=== PATIENT | male | born 1970 | race Caucasian/White ===

== ENCOUNTER 2018-11-11 03:52 | Inpatient (IN) | payer BC ==
[2018-11-11] VITALS (19 sets, daily range): BP systolic 107–164; BP diastolic 64–97
[~2018-11-11] VITALS: Ht 167.6 cm; Wt 88.3 kg
[2018-11-11] MEDS ORDERED: MORPHINE SULFATE 4 MG/ML CPJ (NOT FOR IM USE) IV ONE ×3 (07:15→14:00)
[2018-11-11 08:17] LABS: BASOPHILS % 0.4 % (0.0-2.0); EOSINOPHILS % 2.8 % (0.0-5.0); HEMATOCRIT. 42.5 % (42.0-52.0); HEMOGLOBIN. 14.9 g/dL (14.0-18.0); LYMPHOCYTES % 12.7 % (20.0-50.0); MEAN CORPUSCULAR HEMOGLOBIN 30.3 pg (28.0-32.0); MEAN CORPUSCULAR VOLUME 86.4 fL (80.0-94.0); MEAN PLATELET VOLUME 7.2 fl (7.4-10.4); MONOCYTES % 8.8 % (2.0-8.0); NEUTROPHILS % 75.3 % (40.0-76.0); PLATELET 296 x1000/uL (130-400); RED BLOOD CELL COUNT 4.92 mill/uL (4.7-6.1); RED CELL DISTRIBUTION WIDTH 13.2 % (11.6-14.6)
[2018-11-11 08:22] LABS: CHLORIDE 101 mEq/L (98-107)
[2018-11-11 08:25] LABS: PROTHROMBIN TIME 10.3 sec (9.6-11.0)
[2018-11-11] MEDS ORDERED: DEXAMETHASONE 10 MG/ML VIAL IV ONE (11:45)
[2018-11-11] MEDS: DOCUSATE SODIUM 250MG CAPSULE PO SCH (14:00)
[2018-11-11] MEDS ORDERED: ONDANSETRON HCL 4MG/2ML INJ IV PRN (14:00)
[2018-11-11] MEDS ORDERED: BISACODYL 5MG TABLET PO PRN (14:00)
[2018-11-11 15:10] LABS: C REACTIVE PROTEIN QUANT 8.4 mg/L (0.0-3.0)
[2018-11-11 15:21] LABS: CARCINO EMBRYONIC ANTIGEN 1.1 ng/ml
[2018-11-11 15:32] LABS: HEPATITIS B SURFACE ANTIGEN NEGATIVE
[2018-11-11] MEDS ORDERED: GADOBENATE DIMEGLUMINE 529 MG/ML 10ML IV ONE (15:39)
[2018-11-11 15:41] LABS: CLARITY URINE CLEAR (CLEAR); COLOR URINE YELLOW (YELLOW); KETONES URINE NEGATIVE (NEGATIVE); LEUKOCYTE ESTERASE URINE NEGATIVE (NEGATIVE); NITRITE URINE NEGATIVE (NEGATIVE); OCCULT BLOOD URINE NEGATIVE (NEGATIVE); PROTEIN URINE NEGATIVE (NEGATIVE); SPECIFIC GRAVITY URINE 1.012 (1.005-1.030); UROBILINOGEN URINE 0.2 E.U./dL (0.2-1.0)
[2018-11-11 16:02] LABS: HEPATITIS A AB IGM NEGATIVE (NEGATIVE)
[2018-11-11 16:17] LABS: *AMPHETAMINES SCREEN URINE NEGATIVE (NEGATIVE); *BARBITURATES SCREEN URINE NEGATIVE (NEGATIVE); *BENZODIAZEPINES SCREEN URINE NEGATIVE (NEGATIVE); *COCAINE SCREEN URINE NEGATIVE (NEGATIVE); METHADONE URINE SCREEN PRESUMTIVE POSITIVE (NEGATIVE); OPIATES URINE SCREEN PRESUMTIVE POSITIVE (NEGATIVE)
[2018-11-11 16:18] LABS: CANNABINOID URINE SCREEN NEGATIVE (NEGATIVE); PHENCYCLIDINE URINE SCREEN NEGATIVE (NEGATIVE)
[2018-11-11 17:02] LABS: CHLORIDE 103 mEq/L (98-107)
[2018-11-11 17:04] LABS: PARTIAL THROMBOPLASTIN TIME 26.6 sec (23.4-31.0); PROTHROMBIN TIME 10.2 sec (9.6-11.0)
[2018-11-11] MEDS: DEXT 5%/LACTATED RINGERS 1,000 ML IV SCH ×3 (17:06→20:16)
[2018-11-11] MEDS: MORPHINE SULFATE 2 MG/ML CPJ (NOT FOR IM USE) IV PRN ×2 (17:27→20:18)
[2018-11-11] MEDS ORDERED: NICARDIPINE 100 MG in SODIUM CHLORIDE 0.9% 60 ML IV PRN (17:45)
[2018-11-11] MEDS ORDERED: MORPHINE SULFATE 4 MG/ML CPJ (NOT FOR IM USE) IV NR (18:00)
[2018-11-11] MEDS ORDERED: DEXAMETHASONE 4MG/ML 1ML VIAL IV SCH (18:00)
[2018-11-11] MEDS ORDERED: CLONIDINE 0.1MG TABLET PO PRN (19:00)
[2018-11-11] MEDS: DEXAMETHASONE 10 MG/ML VIAL IV SCH ×2 (20:18→23:39)
[2018-11-12] VITALS (82 sets, daily range): BP systolic 83–138; BP diastolic 35–82
[2018-11-12] MEDS: MORPHINE SULFATE 2 MG/ML CPJ (NOT FOR IM USE) IV PRN ×7 (00:45→23:30)
[2018-11-12 05:44] LABS: CHLORIDE 103 mEq/L (98-107)
[2018-11-12 05:49] LABS: BASOPHILS % 0.1 % (0.0-2.0); HEMATOCRIT. 37.8 % (42.0-52.0); HEMOGLOBIN. 13.2 g/dL (14.0-18.0); LYMPHOCYTES % 9.9 % (20.0-50.0); MEAN CORPUSCULAR HEMOGLOBIN 30.1 pg (28.0-32.0); MEAN CORPUSCULAR VOLUME 86.1 fL (80.0-94.0); MEAN PLATELET VOLUME 7.6 fl (7.4-10.4); MONOCYTES % 2.5 % (2.0-8.0); NEUTROPHILS % 87.5 % (40.0-76.0); PLATELET 307 x1000/uL (130-400); RED BLOOD CELL COUNT 4.39 mill/uL (4.7-6.1)
[2018-11-12] MEDS: DEXAMETHASONE 10 MG/ML VIAL IV SCH ×4 (05:49→23:28)
[2018-11-12] MEDS ORDERED: LIDOCAINE HCL/EPINEPHRINE 1%-EPI 1:100,000 20 ML VIAL ONE (06:27)
[2018-11-12] MEDS ORDERED: NORMAL SALINE 0.9% 10 ML SYR ONE (06:27)
[2018-11-12] MEDS ORDERED: BACITRACIN 15GM TUBE TOP ONE (06:27)
[2018-11-12] MEDS ORDERED: BACITRACIN 50,000 UNITS/VIAL ONE (06:27)
[2018-11-12] MEDS ORDERED: THROMBIN (BOVINE) 5000 UNITS/VIAL TOP ONE (06:27)
[2018-11-12] MEDS ORDERED: PROPOFOL 200MG/20ML VIAL IV ONE (06:48)
[2018-11-12] MEDS ORDERED: ROCURONIUM BROMIDE 10MG/ML VIAL 5ML IV ONE (06:48)
[2018-11-12] MEDS ORDERED: FENTANYL CITRATE/PF 50MCG/ML 2ML VIAL ONE (06:48)
[2018-11-12] MEDS ORDERED: MIDAZOLAM HCL 2 MG/2 ML VIAL ONE (06:48)
[2018-11-12] MEDS ORDERED: GLYCOPYRROLATE 0.2 MG/ML 2ML VIAL ONE ×2 (06:48→09:14)
[2018-11-12] MEDS ORDERED: NEOSTIGMINE METHYLSULFATE 1MG/ML 10 ML VIAL ONE (06:48)
[2018-11-12] MEDS ORDERED: DEXAMETHASONE 4MG/ML 1ML VIAL ONE (06:50)
[2018-11-12] MEDS ORDERED: ONDANSETRON HCL 4MG/2ML INJ ONE (06:50)
[2018-11-12] MEDS ORDERED: NICARDIPINE 100 MG in SODIUM CHLORIDE 0.9% 60 ML IV PRN (07:15)
[2018-11-12] MEDS ORDERED: FENTANYL CITRATE/PF 50MCG/ML 5ML VIAL ONE (07:25)
[2018-11-12] MEDS: DOCUSATE SODIUM 250MG CAPSULE PO SCH (08:51)
[2018-11-12] MEDS: DEXT 5%/LACTATED RINGERS 1,000 ML IV SCH ×2 (11:44→18:15)
[2018-11-12] MEDS: HYDROCODONE/ACETAMINOPHEN 5/325MG TABLET PO PRN ×3 (11:50→21:44)
[2018-11-12] MEDS ORDERED: CEFAZOLIN SODIUM 1000MG/VIAL IV SCH (14:00)
[2018-11-12] MEDS ORDERED: IPRATROPIUM/ALBUTEROL 0.5-3(2.5)MG/3ML NEB HHN PRN (14:00)
[2018-11-12] MEDS: CEFAZOLIN 1000MG PREMIX 50 ML IV SCH ×2 (14:09→21:44)
[2018-11-12] MEDS: ACETAMINOPHEN 325MG TABLET PO PRN (21:42)
[2018-11-13] VITALS (87 sets, daily range): BP systolic 76–155; BP diastolic 33–89
[2018-11-13] MEDS: MORPHINE SULFATE 2 MG/ML CPJ (NOT FOR IM USE) IV PRN ×8 (03:15→22:12)
[2018-11-13] MEDS: HYDROCODONE/ACETAMINOPHEN 5/325MG TABLET PO PRN ×2 (04:42→09:22)
[2018-11-13 05:15] LABS: HEMATOCRIT. 32.8 % (42.0-52.0); HEMOGLOBIN. 11.4 g/dL (14.0-18.0); MEAN CORPUSCULAR HEMOGLOBIN 30.5 pg (28.0-32.0); MEAN CORPUSCULAR VOLUME 87.5 fL (80.0-94.0); MEAN PLATELET VOLUME 8.1 fl (7.4-10.4); PLATELET 287 x1000/uL (130-400); RED BLOOD CELL COUNT 3.75 mill/uL (4.7-6.1); RED CELL DISTRIBUTION WIDTH 13.2 % (11.6-14.6)
[2018-11-13 05:24] LABS: CHLORIDE 105 mEq/L (98-107)
[2018-11-13] MEDS: CEFAZOLIN 1000MG PREMIX 50 ML IV SCH ×3 (06:05→21:15)
[2018-11-13] MEDS: DEXAMETHASONE 10 MG/ML VIAL IV SCH ×4 (06:05→23:39)
[2018-11-13] MEDS: DOCUSATE SODIUM 250MG CAPSULE PO SCH ×2 (09:00→14:00)
[2018-11-13 09:11] LABS: HIV SCREEN 4G Non Reactive (Non Reactive)
[2018-11-13 10:06] LABS: EBV NUCLEAR IGG >600.0 U/mL (0.0-17.9); EBV VIRAL CAPSID AB IGM <36.0 U/mL (0.0-35.9)
[2018-11-13] MEDS: DEXT 5%/LACTATED RINGERS 1,000 ML IV SCH ×2 (10:46→18:41)
[2018-11-13 11:30] LABS: PLATELET ESTIMATE NORMAL
[2018-11-13] MEDS: HYDROCODONE/ACETAMINOPHEN 10/325MG TABLET PO PRN ×2 (13:50→19:52)
[2018-11-13 15:14] LABS: A/G RATIO 1.4 (0.7-1.7); ALBUMIN 4.4 g/dL (2.9-4.4); ALPHA-1-GLOBULIN 0.2 g/dL (0.0-0.4); ALPHA-2-GLOBULIN 0.6 g/dL (0.4-1.0); GAMMA GLOBULINS 1.2 g/dL (0.4-1.8); GLOBULIN TOTAL 3.1 g/dL (2.2-3.9); M-SPIKE Not Observed g/dL (Not Observed); TOTAL PROTEIN SERUM 7.5 g/dL (6.0-8.5)
[2018-11-13] MEDS: FAMOTIDINE 20MG TABLET PO SCH (19:51)
[2018-11-14] VITALS (31 sets, daily range): BP systolic 110–156; BP diastolic 55–87
[2018-11-14] MEDS: HYDROCODONE/ACETAMINOPHEN 10/325MG TABLET PO PRN ×3 (00:59→12:11)
[2018-11-14] MEDS: MORPHINE SULFATE 2 MG/ML CPJ (NOT FOR IM USE) IV PRN ×7 (00:59→21:33)
[2018-11-14] MEDS: DEXT 5%/LACTATED RINGERS 1,000 ML IV SCH ×3 (01:00→20:46)
[2018-11-14 05:01] LABS: HEMATOCRIT. 33.3 % (42.0-52.0); HEMOGLOBIN. 11.7 g/dL (14.0-18.0); MEAN CORPUSCULAR HEMOGLOBIN 30.9 pg (28.0-32.0); MEAN CORPUSCULAR VOLUME 87.7 fL (80.0-94.0); MEAN PLATELET VOLUME 7.6 fl (7.4-10.4); PLATELET 271 x1000/uL (130-400); RED BLOOD CELL COUNT 3.79 mill/uL (4.7-6.1); RED CELL DISTRIBUTION WIDTH 13.2 % (11.6-14.6)
[2018-11-14 05:15] LABS: CHLORIDE 106 mEq/L (98-107)
[2018-11-14] MEDS: CEFAZOLIN 1000MG PREMIX 50 ML IV SCH ×3 (06:10→21:31)
[2018-11-14] MEDS: DEXAMETHASONE 10 MG/ML VIAL IV SCH (06:10)
[2018-11-14] MEDS: DOCUSATE SODIUM 250MG CAPSULE PO SCH (08:32)
[2018-11-14 08:39] LABS: PLATELET ESTIMATE NORMAL
[2018-11-14] MEDS ORDERED: GADOBENATE DIMEGLUMINE 529 MG/ML 10ML IV ONE (09:31)
[2018-11-14 13:06] LABS: ANTI-MYELOPEROXIDASE AB < 9.0 U/mL (0.0-9.0); ANTI-PROTEINASE 3 ABS 5.5 U/mL (0.0-3.5); ATYPICAL P-ANCA <1:20 titer (Neg:<1:20); CYTOPLASMIC C-ANCA <1:20 titer (Neg:<1:20); PERINUCLEAR P-ANCA <1:20 titer (Neg:<1:20)
[2018-11-14 15:08] LABS: ANA IFA Negative (.)
[2018-11-14] MEDS: DEXAMETHASONE 4MG/ML 1ML VIAL IV SCH (17:32)
[2018-11-14] MEDS: FAMOTIDINE 20MG TABLET PO SCH (20:45)
[2018-11-15] VITALS: BP 115/74
[2018-11-15] MEDS: HYDROCODONE/ACETAMINOPHEN 10/325MG TABLET PO PRN ×3 (00:17→15:27)
[2018-11-15] MEDS: MORPHINE SULFATE 2 MG/ML CPJ (NOT FOR IM USE) IV PRN ×3 (03:42→09:50)
[2018-11-15 04:00] VITALS: BP 113/61
[2018-11-15] MEDS: CEFAZOLIN 1000MG PREMIX 50 ML IV SCH ×3 (06:18→21:17)
[2018-11-15] MEDS: DEXAMETHASONE 4MG/ML 1ML VIAL IV SCH ×2 (06:18→17:42)
[2018-11-15 08:00] VITALS: BP 125/77
[2018-11-15] MEDS: DOCUSATE SODIUM 250MG CAPSULE PO SCH (08:49)
[2018-11-15] MEDS: DEXT 5%/LACTATED RINGERS 1,000 ML IV SCH (09:49)
[2018-11-15] MEDS: MORPHINE SULFATE 4 MG/ML CPJ (NOT FOR IM USE) IV PRN ×7 (11:12→22:30)
[2018-11-15 12:00] VITALS: BP 159/55
[2018-11-15 16:00] VITALS: BP 133/73
[2018-11-15 20:00] VITALS: BP 119/75
[2018-11-15] MEDS: FAMOTIDINE 20MG TABLET PO SCH (21:17)
[2018-11-16] VITALS: BP 122/57
[2018-11-16] MEDS: MORPHINE SULFATE 4 MG/ML CPJ (NOT FOR IM USE) IV PRN ×3 (00:32→09:30)
[2018-11-16 04:00] VITALS: BP 116/64
[2018-11-16] MEDS: DEXAMETHASONE 4MG/ML 1ML VIAL IV SCH (05:07)
[2018-11-16] MEDS: CEFAZOLIN 1000MG PREMIX 50 ML IV SCH ×3 (05:07→22:57)
[2018-11-16] MEDS: DEXT 5%/LACTATED RINGERS 1,000 ML IV SCH ×3 (05:10→21:00)
[2018-11-16] MEDS: HYDROCODONE/ACETAMINOPHEN 10/325MG TABLET PO PRN ×2 (06:58→17:48)
[2018-11-16 08:00] VITALS: BP 128/75
[2018-11-16] MEDS: DOCUSATE SODIUM 250MG CAPSULE PO SCH (08:24)
[2018-11-16 12:00] VITALS: BP 145/78
[2018-11-16] MEDS: MORPHINE SULFATE 2 MG/ML CPJ (NOT FOR IM USE) IV PRN ×4 (12:35→23:54)
[2018-11-16 16:00] VITALS: BP 139/79
[2018-11-16 20:00] VITALS: BP 134/92
[2018-11-16] MEDS: FAMOTIDINE 20MG TABLET PO SCH (20:42)
[2018-11-17] VITALS: BP_SYST 110; BP_SYST 111; BP_DIAS 65; BP_DIAS 86
[2018-11-17] MEDS: MORPHINE SULFATE 2 MG/ML CPJ (NOT FOR IM USE) IV PRN ×5 (02:56→20:48)
[2018-11-17 04:00] VITALS: BP 118/73
[2018-11-17] MEDS: CEFAZOLIN 1000MG PREMIX 50 ML IV SCH ×3 (05:27→20:49)
[2018-11-17 08:00] VITALS: BP 120/72
[2018-11-17] MEDS: DEXAMETHASONE 4MG TABLET PO SCH (09:58)
[2018-11-17] MEDS: HYDROCODONE/ACETAMINOPHEN 10/325MG TABLET PO PRN (11:32)
[2018-11-17] MEDS: DOCUSATE SODIUM 250MG CAPSULE PO SCH (11:32)
[2018-11-17 12:00] VITALS: BP 132/69
[2018-11-17] MEDS ORDERED: SORBITOL 70% SOLN 30ML PO ONE (13:15)
[2018-11-17 16:00] VITALS: BP 120/65
[2018-11-17 20:00] VITALS: BP 125/74
[2018-11-17] MEDS: FAMOTIDINE 20MG TABLET PO SCH (20:48)
[2018-11-18] VITALS (7 sets, daily range): BP systolic 103–133; BP diastolic 61–81
[2018-11-18] MEDS: MORPHINE SULFATE 2 MG/ML CPJ (NOT FOR IM USE) IV PRN ×5 (00:12→16:18)
[2018-11-18] MEDS: CEFAZOLIN 1000MG PREMIX 50 ML IV SCH ×2 (06:24→15:10)
[2018-11-18] MEDS: DEXT 5%/LACTATED RINGERS 1,000 ML IV SCH (06:24)
[2018-11-18] MEDS: DEXAMETHASONE 4MG TABLET PO SCH (09:13)
[2018-11-18] MEDS: DOCUSATE SODIUM 250MG CAPSULE PO SCH (09:13)
[2018-11-18] MEDS ORDERED: BISACODYL 10MG SUPP PR NR ×2 (11:37→11:45)
[2018-11-18] MEDS: ACETAMINOPHEN 325MG TABLET PO PRN (20:53)
[2018-11-18] MEDS: FAMOTIDINE 20MG TABLET PO SCH (21:10)
== END 2018-11-18 21:20 | DRG 821 ==
LOC: ER 03:52 → MICUNO 13:12 → ENRESERV 13:50 → 6EST 11-14 16:55
PROVIDERS: ADMIT Internal Medicine; ATTEND Internal Medicine
PROC: 06HY33Z Insertion of Infusion Device into Lower Vein, Percutaneous Approach (ICD-10-PCS; 2018-11-11)
PROC: 0PB40ZZ Excision of Thoracic Vertebra, Open Approach (ICD-10-PCS; principal; 2018-11-12)
PROC: 00NX0ZZ Release Thoracic Spinal Cord, Open Approach (ICD-10-PCS; 2018-11-12)
PROC: 4A11X4G Monitoring of Peripheral Nervous Electrical Activity, Intraoperative, External Approach (ICD-10-PCS; 2018-11-12)
DX: C85.90 Non-Hodgkin lymphoma, unspecified, unspecified site (principal); G82.20 Paraplegia, unspecified; E87.1 Hypo-osmolality and hyponatremia; K59.2 Neurogenic bowel, not elsewhere classified; G95.9 Disease of spinal cord, unspecified; B19.20 Unspecified viral hepatitis C without hepatic coma; F17.210 Nicotine dependence, cigarettes, uncomplicated; G89.29 Other chronic pain; J44.9 Chronic obstructive pulmonary disease, unspecified; F15.10 Other stimulant abuse, uncomplicated; F10.10 Alcohol abuse, uncomplicated; R33.9 Retention of urine, unspecified; K59.00 Constipation, unspecified; Z80.6 Family history of leukemia; Z82.49 Family history of ischemic heart disease and other diseases of the circulatory system; Z86.19 Personal history of other infectious and parasitic diseases; Z71.51 Drug abuse counseling and surveillance of drug abuser
CPT/HCPCS: 36415; 36556; 71045; 71250; 72070; 72148; 72156; 72157; 74176; 76000; 80048; 80076; 80305; 81003; 82105; 82378; 83036; 83520; 83615; 84153; 84155; 84165; 84550; 85651; 86140; 86256; 86304; 86664; 86665; 86705; 86709; 86803; 87340; 87389; 88304; 88305; 88311; 88331; 93005; 93970; 95925; 95926; 95928; 95929; 97116; 97162; 97167; 97530; 97535; 99291; A9577; J0690; J1100; J2250; J2270; J2405; J2704; J2710; J3010; J3490; J7050; J7121; J8540; G0103

== ENCOUNTER 2018-11-18 21:15 | Inpatient (IN) | payer BC ==
[~2018-11-18] VITALS: Ht 167.6 cm; Wt 88.3 kg
[2018-11-18 21:15] VITALS: BP 107/64
[2018-11-18] MEDS ORDERED: IPRATROPIUM/ALBUTEROL 0.5-3(2.5)MG/3ML NEB HHN PRN (22:45)
[2018-11-18] MEDS ORDERED: ONDANSETRON HCL 4MG TABLET PO PRN (22:45)
[2018-11-18] MEDS ORDERED: CLONIDINE 0.1MG TABLET PO PRN (22:45)
[2018-11-18] MEDS ORDERED: ACETAMINOPHEN 650MG/20.3ML UDC PO PRN (22:45)
[2018-11-19] MEDS: HYDROCODONE/ACETAMINOPHEN 5/325MG TABLET PO PRN (06:56)
[2018-11-19 08:03] VITALS: BP 101/56
[2018-11-19] MEDS: DEXAMETHASONE 4MG TABLET PO SCH (08:25)
[2018-11-19] MEDS: DOCUSATE SODIUM 250MG CAPSULE PO SCH (08:25)
[2018-11-19] MEDS: HYDROCODONE/ACETAMINOPHEN 10/325MG TABLET PO PRN ×2 (11:28→16:49)
[2018-11-19 20:00] VITALS: BP 133/67
[2018-11-19] MEDS: OXYCODONE HCL 10MG TABLET SR 12HR PO SCH (21:44)
[2018-11-19] MEDS: FAMOTIDINE 20MG TABLET PO SCH (21:44)
[2018-11-20] MEDS: HYDROCODONE/ACETAMINOPHEN 10/325MG TABLET PO PRN ×2 (03:13→14:04)
[2018-11-20 07:43] VITALS: BP 110/63
[2018-11-20] MEDS: DOCUSATE SODIUM 250MG CAPSULE PO SCH (08:08)
[2018-11-20] MEDS: DEXAMETHASONE 4MG TABLET PO SCH (08:08)
[2018-11-20] MEDS: OXYCODONE HCL 10MG TABLET SR 12HR PO SCH (08:09)
[2018-11-20] MEDS: MAGNESIUM HYDROXIDE 400MG/5ML 30ML UDC PO SCH ×2 (13:45→15:49)
[2018-11-20] MEDS: HYDROCODONE/ACETAMINOPHEN 5/325MG TABLET PO PRN (17:45)
[2018-11-20 20:00] VITALS: BP 137/83
[2018-11-20] MEDS: FAMOTIDINE 20MG TABLET PO SCH (20:58)
[2018-11-20] MEDS: OXYCODONE HCL 20MG TABLET SR 12HR PO SCH (20:58)
[2018-11-21] MEDS: BISACODYL 5MG TABLET PO PRN (02:24)
[2018-11-21] MEDS: HYDROCODONE/ACETAMINOPHEN 10/325MG TABLET PO PRN ×3 (02:25→12:20)
[2018-11-21] MEDS: MAGNESIUM HYDROXIDE 400MG/5ML 30ML UDC PO PRN (05:52)
[2018-11-21 07:29] LABS: HEMATOCRIT. 36.3 % (42.0-52.0); HEMOGLOBIN. 12.6 g/dL (14.0-18.0); MEAN CORPUSCULAR HEMOGLOBIN 30.2 pg (28.0-32.0); MEAN CORPUSCULAR VOLUME 87.2 fL (80.0-94.0); MEAN PLATELET VOLUME 7.7 fl (7.4-10.4); PLATELET 371 x1000/uL (130-400); RED BLOOD CELL COUNT 4.16 mill/uL (4.7-6.1); RED CELL DISTRIBUTION WIDTH 13.1 % (11.6-14.6)
[2018-11-21 08:03] VITALS: BP 127/80
[2018-11-21] MEDS: DOCUSATE SODIUM 250MG CAPSULE PO SCH (08:18)
[2018-11-21] MEDS: DEXAMETHASONE 4MG TABLET PO SCH (08:18)
[2018-11-21] MEDS: OXYCODONE HCL 20MG TABLET SR 12HR PO SCH ×2 (08:18→21:58)
[2018-11-21 08:35] LABS: CHLORIDE 101 mEq/L (98-107)
[2018-11-21 08:53] LABS: PHOSPHORUS 3.9 mg/dL (2.5-4.9)
[2018-11-21 08:56] LABS: TOTAL IRON BINDING CAPACITY 263 ug/dL (250-450)
[2018-11-21 10:15] LABS: FOLIC ACID (FOLATE) SERUM 15.3 ng/mL (>5.38)
[2018-11-21 10:18] LABS: PROSTRATE SPECIFIC AG TOTAL 0.3 ng/mL (0.0-4.0)
[2018-11-21 10:31] LABS: PLATELET ESTIMATE NORMAL
[2018-11-21 11:24] VITALS: BP 130/62
[2018-11-21] MEDS ORDERED: BISACODYL 10MG SUPP PR NR (12:00)
[2018-11-21] MEDS: LACTULOSE 20G/30ML UDC PO SCH ×3 (12:19→20:00)
[2018-11-21 20:00] VITALS: BP 138/82
[2018-11-21] MEDS: FAMOTIDINE 20MG TABLET PO SCH (21:56)
[2018-11-22] MEDS: HYDROCODONE/ACETAMINOPHEN 10/325MG TABLET PO PRN ×2 (01:48→20:22)
[2018-11-22 07:43] VITALS: BP 125/68
[2018-11-22] MEDS: DEXAMETHASONE 4MG TABLET PO SCH (08:22)
[2018-11-22] MEDS: OXYCODONE HCL 20MG TABLET SR 12HR PO SCH (08:22)
[2018-11-22] MEDS: DOCUSATE SODIUM 250MG CAPSULE PO SCH (08:41)
[2018-11-22] MEDS: POLYETHYLENE GLYCOL 3350 (17GM) 1 DOSE PACK PO SCH (08:41)
[2018-11-22] MEDS: BISACODYL 10MG SUPP PR SCH (08:42)
[2018-11-22 20:00] VITALS: BP 121/76
[2018-11-22] MEDS: FAMOTIDINE 20MG TABLET PO SCH (20:28)
[2018-11-23] MEDS: HYDROCODONE/ACETAMINOPHEN 10/325MG TABLET PO PRN ×3 (01:29→17:41)
[2018-11-23 08:11] VITALS: BP 126/71
[2018-11-23] MEDS: DEXAMETHASONE 4MG TABLET PO SCH (08:55)
[2018-11-23] MEDS: POLYETHYLENE GLYCOL 3350 (17GM) 1 DOSE PACK PO SCH (08:55)
[2018-11-23] MEDS: DOCUSATE SODIUM 250MG CAPSULE PO SCH (08:55)
[2018-11-23] MEDS: BISACODYL 10MG SUPP PR SCH (08:56)
[2018-11-23] MEDS: OXYCODONE HCL 10MG TABLET SR 12HR PO SCH ×2 (08:56→13:05)
[2018-11-23] MEDS: BISACODYL 5MG TABLET PO PRN (17:41)
[2018-11-23 20:00] VITALS: BP 126/79
[2018-11-23] MEDS: MAGNESIUM HYDROXIDE 400MG/5ML 30ML UDC PO PRN (20:09)
[2018-11-23] MEDS: FAMOTIDINE 20MG TABLET PO SCH (21:25)
[2018-11-23] MEDS: HYDROMORPHONE HCL 2MG TABLET PO SCH (21:27)
[2018-11-24] MEDS ORDERED: HYDROCODONE/ACETAMINOPHEN 10/325MG TABLET PO PRN (01:00)
[2018-11-24] MEDS: HYDROCODONE/ACETAMINOPHEN 5/325MG TABLET PO PRN ×2 (01:24→05:38)
[2018-11-24 08:00] VITALS: BP 106/55
[2018-11-24] MEDS: POLYETHYLENE GLYCOL 3350 (17GM) 1 DOSE PACK PO SCH (08:45)
[2018-11-24] MEDS: BISACODYL 5MG TABLET PO PRN (08:46)
[2018-11-24] MEDS: DOCUSATE SODIUM 250MG CAPSULE PO SCH (08:46)
[2018-11-24] MEDS: DEXAMETHASONE 4MG TABLET PO SCH (08:46)
[2018-11-24] MEDS: HYDROMORPHONE HCL 2MG TABLET PO SCH ×4 (08:46→21:17)
[2018-11-24] MEDS: BISACODYL 10MG SUPP PR SCH (08:50)
[2018-11-24] MEDS: OXYCODONE HCL/ACETAMINOPHEN 5/325MG TABLET PO PRN (14:12)
[2018-11-24 20:00] VITALS: BP 114/65
[2018-11-24] MEDS: FAMOTIDINE 20MG TABLET PO SCH (21:16)
[2018-11-25] MEDS: OXYCODONE HCL/ACETAMINOPHEN 5/325MG TABLET PO PRN ×2 (00:45→06:12)
[2018-11-25 08:00] VITALS: BP 120/70
[2018-11-25] MEDS: DOCUSATE SODIUM 250MG CAPSULE PO SCH (08:28)
[2018-11-25] MEDS: DEXAMETHASONE 4MG TABLET PO SCH (08:28)
[2018-11-25] MEDS: HYDROMORPHONE HCL 2MG TABLET PO SCH ×4 (08:29→21:31)
[2018-11-25] MEDS: POLYETHYLENE GLYCOL 3350 (17GM) 1 DOSE PACK PO SCH (09:00)
[2018-11-25] MEDS: BISACODYL 10MG SUPP PR SCH (09:00)
[2018-11-25 20:00] VITALS: BP 113/66
[2018-11-26] MEDS: OXYCODONE HCL/ACETAMINOPHEN 5/325MG TABLET PO PRN ×3 (00:51→08:45)
[2018-11-26 08:00] VITALS: BP 142/73
[2018-11-26] MEDS: BISACODYL 5MG TABLET PO PRN (08:44)
[2018-11-26] MEDS: POLYETHYLENE GLYCOL 3350 (17GM) 1 DOSE PACK PO SCH (08:44)
[2018-11-26] MEDS: DOCUSATE SODIUM 250MG CAPSULE PO SCH (08:44)
[2018-11-26] MEDS: BISACODYL 10MG SUPP PR SCH (09:00)
[2018-11-26] MEDS: HYDROMORPHONE HCL 2MG TABLET PO SCH ×3 (12:10→23:26)
[2018-11-26 20:00] VITALS: BP 113/73
[2018-11-26] MEDS: MORPHINE SULFATE 15MG TABLET SR PO SCH (21:03)
[2018-11-27] MEDS: HYDROMORPHONE HCL 2MG TABLET PO SCH ×3 (03:00→12:40)
[2018-11-27 08:00] VITALS: BP 115/76
[2018-11-27] MEDS: POLYETHYLENE GLYCOL 3350 (17GM) 1 DOSE PACK PO SCH (08:26)
[2018-11-27] MEDS: DOCUSATE SODIUM 250MG CAPSULE PO SCH (08:26)
[2018-11-27] MEDS: BISACODYL 10MG SUPP PR SCH (08:27)
[2018-11-27] MEDS: MORPHINE SULFATE 15MG TABLET SR PO SCH ×2 (08:27→20:11)
[2018-11-27] MEDS ORDERED: HYDROMORPHONE HCL 2MG TABLET PO SCH (17:00)
[2018-11-27] MEDS: QUETIAPINE FUMARATE 25MG TABLET PO SCH (18:53)
[2018-11-27 20:00] VITALS: BP 117/74
[2018-11-27] MEDS: HYDROCODONE/ACETAMINOPHEN 10/325MG TABLET PO PRN (21:51)
[2018-11-28] MEDS: HYDROCODONE/ACETAMINOPHEN 10/325MG TABLET PO PRN (03:56)
[2018-11-28 04:07] LABS: 25-HYDROXY VITAMIN D3 27 ng/mL (.)
[2018-11-28 08:00] VITALS: BP 121/77
[2018-11-28] MEDS: MORPHINE SULFATE 15MG TABLET SR PO SCH ×2 (09:00→20:43)
[2018-11-28] MEDS: BISACODYL 10MG SUPP PR SCH (09:00)
[2018-11-28] MEDS: QUETIAPINE FUMARATE 25MG TABLET PO SCH ×3 (09:00→22:38)
[2018-11-28] MEDS: POLYETHYLENE GLYCOL 3350 (17GM) 1 DOSE PACK PO SCH (09:12)
[2018-11-28] MEDS: DOCUSATE SODIUM 250MG CAPSULE PO SCH (09:12)
[2018-11-28 20:00] VITALS: BP 114/67
[2018-11-29 08:22] VITALS: BP 118/77
[2018-11-29] MEDS: POLYETHYLENE GLYCOL 3350 (17GM) 1 DOSE PACK PO SCH (08:43)
[2018-11-29] MEDS: MORPHINE SULFATE 15MG TABLET SR PO SCH ×2 (08:44→20:05)
[2018-11-29] MEDS: DOCUSATE SODIUM 250MG CAPSULE PO SCH (08:44)
[2018-11-29] MEDS: BISACODYL 10MG SUPP PR SCH (08:51)
[2018-11-29 15:35] LABS: *BARBITURATES SCREEN URINE NEGATIVE (NEGATIVE); *BENZODIAZEPINES SCREEN URINE NEGATIVE (NEGATIVE); *COCAINE SCREEN URINE NEGATIVE (NEGATIVE); METHADONE URINE SCREEN NEGATIVE (NEGATIVE); OPIATES URINE SCREEN PRESUMTIVE POSITIVE (NEGATIVE)
[2018-11-29 15:36] LABS: *AMPHETAMINES SCREEN URINE NEGATIVE (NEGATIVE); CANNABINOID URINE SCREEN NEGATIVE (NEGATIVE); PHENCYCLIDINE URINE SCREEN NEGATIVE (NEGATIVE)
[2018-11-29] MEDS: HYDROCODONE/ACETAMINOPHEN 10/325MG TABLET PO PRN (17:21)
[2018-11-29 20:00] VITALS: BP 134/90
[2018-11-29] MEDS: QUETIAPINE FUMARATE 25MG TABLET PO SCH (20:04)
[2018-11-29] MEDS: GENTAMICIN 0.3% OPHTH DROPS 5ML BOTHEYE PRN (20:05)
[2018-11-30] MEDS: HYDROCODONE/ACETAMINOPHEN 10/325MG TABLET PO PRN ×2 (00:03→17:16)
[2018-11-30 08:00] VITALS: BP 122/78
[2018-11-30] MEDS: MORPHINE SULFATE 15MG TABLET SR PO SCH ×2 (08:37→21:03)
[2018-11-30] MEDS: BISACODYL 10MG SUPP PR SCH (09:00)
[2018-11-30] MEDS: DOCUSATE SODIUM 250MG CAPSULE PO SCH (09:00)
[2018-11-30] MEDS: POLYETHYLENE GLYCOL 3350 (17GM) 1 DOSE PACK PO SCH (09:00)
[2018-11-30 09:37] LABS: HEMATOCRIT. 36.5 % (42.0-52.0); HEMOGLOBIN. 12.6 g/dL (14.0-18.0); MEAN CORPUSCULAR HEMOGLOBIN 31.1 pg (28.0-32.0); PLATELET 311 x1000/uL (130-400); RED BLOOD CELL COUNT 4.05 mill/uL (4.7-6.1)
[2018-11-30 09:41] LABS: CHLORIDE 101 mEq/L (98-107)
[2018-11-30 10:10] LABS: PLATELET ESTIMATE NORMAL
[2018-11-30 20:00] VITALS: BP 122/74
[2018-11-30] MEDS: QUETIAPINE FUMARATE 25MG TABLET PO SCH ×2 (21:03→23:10)
[2018-12-01 08:00] VITALS: BP 119/72
[2018-12-01] MEDS: BISACODYL 10MG SUPP PR SCH (08:52)
[2018-12-01] MEDS: POLYETHYLENE GLYCOL 3350 (17GM) 1 DOSE PACK PO SCH (08:52)
[2018-12-01] MEDS: DOCUSATE SODIUM 250MG CAPSULE PO SCH (09:17)
[2018-12-01] MEDS: MORPHINE SULFATE 15MG TABLET SR PO SCH ×2 (09:17→20:52)
[2018-12-01] MEDS ORDERED: HYDR-4009 MT ×2 (14:15→14:16)
[2018-12-01] MEDS ORDERED: MORP15TA54 MT ×2 (14:15→14:16)
[2018-12-01] MEDS ORDERED: DOCU250C14 MT (14:15)
[2018-12-01] MEDS: HYDROCODONE/ACETAMINOPHEN 10/325MG TABLET PO PRN (14:46)
[2018-12-01 20:00] VITALS: BP 119/74
[2018-12-01] MEDS: QUETIAPINE FUMARATE 25MG TABLET PO SCH (20:55)
[2018-12-01] MEDS: GENTAMICIN 0.3% OPHTH DROPS 5ML BOTHEYE PRN (21:25)
[2018-12-02] MEDS: GENTAMICIN 0.3% OPHTH DROPS 5ML BOTHEYE SCH ×2 (05:32)
[2018-12-02] MEDS: HYDROCODONE/ACETAMINOPHEN 10/325MG TABLET PO PRN ×2 (06:35→11:10)
[2018-12-02 08:00] VITALS: BP 112/63
[2018-12-02] MEDS: DOCUSATE SODIUM 250MG CAPSULE PO SCH (09:00)
[2018-12-02] MEDS: POLYETHYLENE GLYCOL 3350 (17GM) 1 DOSE PACK PO SCH (09:00)
[2018-12-02] MEDS: BISACODYL 10MG SUPP PR SCH (09:00)
[2018-12-02 10:17] VITALS: BP 112/63
[2018-12-02 11:10] VITALS: BP 112/63
[2018-12-09 15:09] LABS: BARBITURATE SCREEN Negative ug/mL (Cutoff:0.1); BENZODIAZEPINE SCREEN Negative ng/mL (Cutoff:20); OPIATES SCREEN ++POSITIVE++ ng/mL (Cutoff:5); PHENCYCLIDINE SCREEN Negative ng/mL (Cutoff:8)
== END 2018-12-02 11:30 | disposition home or self-care (01) | DRG 841 ==
LOC: UNDOADMIN 22:26
PROVIDERS: ADMIT Psychiatry & Neurology Neurology; ATTEND Internal Medicine
DX: C85.90 Non-Hodgkin lymphoma, unspecified, unspecified site (principal); G82.20 Paraplegia, unspecified; E87.1 Hypo-osmolality and hyponatremia; K59.2 Neurogenic bowel, not elsewhere classified; G89.29 Other chronic pain; B19.20 Unspecified viral hepatitis C without hepatic coma; F10.10 Alcohol abuse, uncomplicated; R33.9 Retention of urine, unspecified; K31.89 Other diseases of stomach and duodenum; F15.10 Other stimulant abuse, uncomplicated; F17.210 Nicotine dependence, cigarettes, uncomplicated; F41.9 Anxiety disorder, unspecified; F32.9 Major depressive disorder, single episode, unspecified; R32 Unspecified urinary incontinence
CPT/HCPCS: 36415; 76700; 80048; 80202; 80305; 80307; 82306; 82607; 82746; 83540; 83550; 83735; 84100; 84153; 84443; 93970; 97110; 97112; 97116; 97140; 97150; 97162; 97166; 97530; 97535; J7040; J8540; G0103